=== PATIENT | male | born 1970 | race American Indian/Alaskan Native ===

== ENCOUNTER 2017-05-11 11:40 | Emergency (ER) | payer OTHER ==
[2017-05-11 11:56] VITALS: BP 138/90; PULSE 72; RESP 18; TEMP 98.5; O2SAT 98
--- NOTE | 2017-05-11 12:45 | C.PDOC ---
History Of Present Illness 46 yo male come in for evaluation of lower back pain gradually developed for past 3 days after sustained mechanical fall, while at work. 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 Pt reports, pain is localized over lower back, non-radiating and worse with movement. Otherwise, pt denies head injury, LOC, syncope, neck pain, CP, abd. pain, N/V, UTI sx, saddle anesthesia, incontinence, denies deformity, weakness, sensory or vascular deficits to B/L UEs and LEs. Ambulate to Ed for evaluation, not in any apparent distress. Time Seen by Provider: 05/11/17 12:06 Chief Complaint (Nursing): Back Pain History Per: Patient History/Exam Limitations: no limitations Onset/Duration Of Symptoms: Days (3) Past Medical History Reviewed: Historical Data, Nursing Documentation, Vital Signs Vital Signs: Last Vital Signs Temp 98.5 F 05/11/17 11:55 Pulse 72 05/11/17 11:55 Resp 18 05/11/17 11:55 BP 138/90 05/11/17 11:55 Pulse Ox 98 05/11/17 12:50 Family History: States: No Known Family Hx - Social History Hx Alcohol Use: No Hx Substance Use: Yes - Immunization History Hx Tetanus Toxoid Vaccination: No Hx Influenza Vaccination: No Hx Pneumococcal Vaccination: No Review Of Systems Except As Marked, All Systems Reviewed And Found Negative. Cardiovascular: Negative for: Chest Pain Gastrointestinal: Negative for: Nausea, Vomiting, Abdominal Pain Genitourinary: Negative for: Incontinence Musculoskeletal: Positive for: Back Pain (lower back pain ). Negative for: Neck Pain Neurological: Negative for: Weakness, Numbness Physical Exam - Physical Exam Appears: Well, Non-toxic, No Acute Distress Skin: Normal Color, Warm, Dry, No Rash, No Ecchymosis Head: Normacephalic Eye(s): bilateral: PERRL Nose: No Flaring, No Discharge Oral Mucosa: Moist, No Drooling Tongue: Normal Appearing Lips: Normal Appearing Neck: Trachea Midline, No Midline Cervical Tenderness, No Paracervical Tenderness, No Step Off Deformity, Supple Cardiovascular: Rhythm Regular Respiratory: No Decreased Breath Sounds, No Accessory Muscle Use, No Stridor, No Wheezing Gastrointestinal/Abdominal: Soft, No Tenderness, No Distention, No Guarding Back: No CVA Tenderness, No Vertebral Tenderness, Paraspinal Tenderness (lumbar , no midline tenderness) Extremity: Normal ROM, No Deformity, No Swelling Neurological/Psych: Oriented x3, Normal Speech, Normal Motor, Normal Sensation, Normal Reflexes ED Course And Treatment O2 Sat by Pulse Oximetry: 98 (RA) Pulse Ox Interpretation: Normal - Other Rad L-spine X-Ray: Interpreted by Me, Viewed By Me Interpretation: (-) acute fx or sublux Progress Note: On re-eval, pt is afebrile, hemodynamicaly stable. Non-toxic. Ambulatoyr in ED with stable giat. Neck: Supple, (-) midline tenderness. Lungs : CTA B/L, BS equal B/L. Abd: benign. Back: (-) midline tenderness, (-) CVA tenderness Neurologicaly intact. L-spine review and appears normal. Pt has clinical findings c/w lower back strain. Pt advised on course of ds. ref. to F/ u with PMD In 2-3 days for re-eval. return if any new changes. Medical Decision Making Medical Decision Making: PLAN: * X-Ray - L Spine * Motrin PO Disposition Counseled Patient/Family Regarding: Studies Performed, Diagnosis, Need For Followup, Rx Given - Disposition Disposition: HOME/ ROUTINE Disposition Time: 12:50 Condition: STABLE Prescriptions: Ibuprofen [Motrin Tab] 800 mg PO TID #14 tab Methocarbamol [Robaxin] 500 mg PO TID #14 tab Instructions: Back Pain (ED) Forms: [facility] ([place]), Work Excuse - Clinical Impression Clinical Impression: Low back strain - PA / INHALATION THERAPIST / Resident Statement MD/DO has reviewed & agrees with the documentation as recorded. - Scribe Statement The provider has reviewed the documentation as recorded by the Scribe Perla Hollis All medical record entries made by the Richardibdev were at my direction and personally dictated by me. I have reviewed the chart and agree that the record accurately reflects my personal performance of the history, physical exam, medical decision making, and the department course for this patient. I have also personally directed, reviewed, and agree with the discharge instructions and disposition.
--- NOTE | 2017-05-11 13:15 | RAD ---
PROCEDURE: Radiographs of the Lumbar Spine. HISTORY: injury COMPARISON: None available. FINDINGS: BONES: Alignment appears satisfactory. No listhesis. No acute displaced fracture identified. DISC SPACES: Unremarkable. OTHER FINDINGS: None. IMPRESSION: No acute displaced fracture or subluxation identified.
== END 2017-05-11 13:51 | disposition home or self-care (01) ==
LOC: C.ER 11:40
DX: S39.012A Strain of muscle, fascia and tendon of lower back, initial encounter (principal); W18.30XA Fall on same level, unspecified, initial encounter; Y92.89 Other specified places as the place of occurrence of the external cause; Y99.0 Civilian activity done for income or pay